=== PATIENT | male | born 1995 | race Caucasian/White ===

== ENCOUNTER 2024-06-27 19:16 | Emergency (ER) | payer BC, SELFPAY | END 2024-06-27 21:30 | disposition home or self-care (01) | LOC: CSHERS 19:16 | DX: S87.82XA Crushing injury of left lower leg, initial encounter (principal); V23.49XA Other motorcycle driver injured in collision with car, pick-up truck or van in traffic accident, initial encounter; Y93.89 Activity, other specified | CPT/HCPCS: 99284; G0390 ==